=== PATIENT | female | born 1940 | race Caucasian/White ===

== ENCOUNTER 2024-12-02 20:09 | Emergency (ER) | payer OTHER ==
[~2024-12-02] VITALS: Ht 149.9 cm; Wt 73.9 kg
[2024-12-02 20:33] LABS: BASOPHILS # (AUTO) 0.04 K/uL (0.00-0.20); BASOPHILS % (AUTO) 0.5 % (0.0-5.0); EOSINOPHILS # (AUTO) 0.17 K/uL (0.00-0.70); EOSINOPHILS % (AUTO) 2.3 % (0.0-8.0); HEMATOCRIT 35.7 % (36-48); IMMATURE GRANULOCYTE ABSOLUTE 0.02 K/uL (0-1); LYMPHOCYTES # (AUTO) 2.5 K/uL (1.0-4.8); MEAN CORPUSCULAR HEMOGLOBIN 24.9 pg (27.0-33.0); MEAN CORPUSCULAR HGB CONC 31.1 g/dL (32.0-36.0); MONOCYTES # (AUTO) 0.7 K/uL (0.1-1.0); MONOCYTES % (AUTO) 9.1 % (3.0-13.0); NEUTROPHILS % (AUTO) 53.8 % (40.0-77.0); PLATELET COUNT (AUTO) 217 K/uL (130-400); RED BLOOD CELL COUNT(AUTO) 4.46 MIL/uL (4.00-5.50); RED CELL DISTRIBUTION WIDTH 16.2 % (11.0-15.5); WHITE BLOOD COUNT (AUTO) 7.5 K/uL (4.8-10.8)
[2024-12-02 20:34] LABS: APPEARANCE,URINE CLEAR (CLEAR); BILIRUBIN,URINE NEGATIVE (NEGATIVE); COLOR,URINE YELLOW (YELLOW); GLUCOSE, URINE (UA) NEGATIVE (NEGATIVE); KETONES,URINE NEGATIVE (NEGATIVE); LEUKOCYTE ESTERASE ,URINE NEGATIVE Leu/uL (NEGATIVE); NITRATE,URINE 1+ (NEGATIVE); OCCULT BLOOD,URINE NEGATIVE (NEGATIVE); PH,URINE 5.5 (5.0-8.0); PROTEIN,URINE 20 mg/dL (NEGATIVE); UROBILINOGEN,URINE 0.2 mg/dL (0.2-1.0)
[2024-12-02 20:39] LABS: BACTERIA,URINE MOD /HPF (None Seen); MUCUS,URINE FEW LPF (None Seen); SQUAMOUS EPITHELIAL CELL,UR FEW /HPF (0-2)
[2024-12-02 20:43] LABS: POTASSIUM 3.8 mmol/L (3.5-5.1)
--- NOTE | 2024-12-02 21:20 | HMCIMG ---
PORTABLE CHEST RADIOGRAPH INDICATION: Chest pain COMPARISON: None FINDINGS: Heart is enlarged. The pulmonary vascularity and michelle appear normal. No abnormal pulmonary parenchymal opacity or consolidation identified. No significant pleural effusion noted. No pneumothorax detected. Moderate hiatal hernia. IMPRESSION: Cardiomegaly without radiographic evidence for any acute cardiopulmonary process. Moderate hiatal hernia.
--- NOTE | 2024-12-02 22:06 | ERN ---
General Chief Complaint: Chest Pain Stated Complaint: C/O CP WITH HEADACHE ON AND OFF TODAY Time Seen by MD: 20:12 Time Seen by Midlevel: 20:12 Source: patient History of Present Illness Initial Comments 84-year-old female who presents to the emergency department due to chest pain that occurred approximately 1 hour prior to arrival. Patient states she was playing cards when the pain initiated abruptly. Denies any difficulty breathing or further associated symptoms. Patient reports she takes a statin due to a previous TIA but denies any significant past medical history. Allergies: Coded Allergies: codeine (Unverified Allergy, Unknown, 12/02/24) Past Medical History Past Medical History: No Pertinent History Past Surgical History: Other, Surgical History Other: KNEES SX ROS Dictation Constitutional: Negative for fever,chills, and weight loss Eyes: Negative for injury, pain,redness, and discharge ENT: Negative for injury,pain or swelling Cardiovascular: Positive positive for chest pain Negative for palpitations, and edema Respiratory: Negative for shortness of breath, cough, and wheezing, Abdomen/GI: Negative for abdominal pain, nausea, vomiting, diarrhea, and constipation Back: Negative for injury and pain : Negative for painful urination, bleeding or discharge MS/Extremity: Negative for injury and deformity Skin: Negative for rash, and discoloration Neuro: Negative for headache, weakness, numbness, tingling, and seizure Psych: Negative for suicide ideation, homicidal ideation, and hallucinations Physical Exam Physical Exam Dictation General: awake, alert, no acute distress Head/Face: Normocephalic, atraumatic Eyes: PERRL, EOMI, normal conjunctiva ENT: oral cavity clear, oral mucosa moist Neck: Supple, normal range of motion Cardiovascular: RRR, normal S1/S2 Respiratory: CTAB, no respiratory distress, no rales or wheezes Abdomen: Soft, non-tender, non-distended, no guarding or rebound. Skin: Warm, dry, normal turgor, no rash MS/Extremity: Pulses equal, no cyanosis, neurovascular intact, FROM Neuro: COAx4, GCS 15, strength 5/5, CN 2-12 intact, normal cerebellar exam, normal gait Psych: Normal behavior, mood, and affect normal Results Laboratory and Microbiology Lab and Micro Result Laboratory Tests Test 12/02/24 20:18 12/02/24 20:12/02/24 22:46 Urine Color YELLOW (YELLOW) Urine Appearance CLEAR (CLEAR) Urine pH 5.5 (5.0-8.0) Urine Specific [place] 1.029 (1.001-1.031) Urine Protein 20 mg/dL (NEGATIVE) H Urine Glucose (UA) NEGATIVE mg/dL (NEGATIVE) Urine Ketones NEGATIVE mg/dL (NEGATIVE) Urine Occult Blood NEGATIVE (NEGATIVE) Urine Nitrate 1+ (NEGATIVE) H Urine Bilirubin NEGATIVE mg/dL (NEGATIVE) Urine Urobilinogen 0.2 mg/dL (0.2-1.0) Urine Leukocyte Esterase NEGATIVE [place]/uL Urine RBC 2-5 /HPF (0-1) H Urine WBC 6-10 /HPF (0-1) H Urine Squamous Epithelial Cells FEW /HPF (0-2) Urine Bacteria MOD /HPF (None Seen) White Blood Count 7.5 K/uL (4.8-10.8) Red Blood Count 4.46 MIL/uL (4.00-5.50) Hemoglobin 11.1 g/dL (12.0-16.0) L Hematocrit 35.7 % (36-48) L Mean Corpuscular Volume 80.0 fL (79-99) Mean Corpuscular Hemoglobin 24.9 pg (27.0-33.0) L Mean Corpuscular Hemoglobin Concent 31.1 g/dL (32.0-36.0) L Red Cell Distribution Width 16.2 % (11.0-15.5) H Platelet Count 217 K/uL (130-400) Mean Platelet Volume 9.5 fL (7.5-10.5) Immature Granulocyte % (Auto) 0.3 % (0-1) Neutrophils (%) (Auto) 53.8 % (40.0-77.0) Lymphocytes (%) (Auto) 34.0 % (21.0-51.0) Monocytes (%) (Auto) 9.1 % (3.0-13.0) Eosinophils (%) (Auto) 2.3 % (0.0-8.0) Basophils (%) (Auto) 0.5 % (0.0-5.0) Neutrophils # (Auto) 4.0 K/uL (1.8-7.7) Lymphocytes # (Auto) 2.5 K/uL (1.0-4.8) Monocytes # (Auto) 0.7 K/uL (0.1-1.0) Eosinophils # (Auto) 0.17 K/uL (0.00-0.70) Basophils # (Auto) 0.04 K/uL (0.00-0.20) Absolute Immature Granulocyte (auto 0.02 K/uL (0-1) Nucleated Red Blood Cells 0.0 % (0.0-0.19) Red Blood Cell Morphology See comments Sodium Level 137 mmol/L (136-145) Potassium Level 3.8 mmol/L (3.5-5.1) Chloride Level 100 mmol/L (101-111) L Carbon Dioxide Level 33 mmol/L (21-32) H Blood Urea Nitrogen 21 mg/dL (7-18) H Creatinine 1.0 mg/dL (0.5-1.0) Glomerular Filtration Rate Calc 56 mL/min (>90) Random Glucose 92 mg/dL (70-105) Total Calcium 8.9 mg/dL (8.5-10.1) Troponin I High Sensitivity 5 ng/L (4-50) 5 ng/L (4-50) Labs Reviewed?: Yes EKG/XRAY/US/CT/MRI EKG Comment Date: 12/02/2024 Time: 2011 Rate: 73 EKG interpretation: Sinus rhythm, atrial premature complex, low voltage in precordial leads, no STEMI Reviewed by ED Attending X-RAY Comment REASON: Chest pain ORDERING PHYSICIAN: EDIN WADE PROCEDURE: CXR1VW - CHEST 1VW PORTABLE CHEST RADIOGRAPH INDICATION: Chest pain COMPARISON: None FINDINGS: Heart is enlarged. The pulmonary vascularity and michelle appear normal. No abnormal pulmonary parenchymal opacity or consolidation identified. No significant pleural effusion noted. No pneumothorax detected. Moderate hiatal hernia. IMPRESSION: Cardiomegaly without radiographic evidence for any acute cardiopulmonary process. Moderate hiatal hernia. DICTATED BY: ESTEVAN ASHTON MD DATE: 12/02/242116 MDM MDM: Differential diagnosis: OK, acute coronary syndrome, atypical chest pain, musculoskeletal pain Rationale: 84-year-old female who presents to the emergency department due to chest pain that occurred approximately 1 hour prior to arrival. Patient states she was playing cards when the pain initiated abruptly. Denies any difficulty breathing or further associated symptoms. Patient reports she takes a statin due to a previous TIA but denies any significant past medical history. Per physical examination patient is in no acute distress, nonlabored breathing chest, abdomen is soft nontender. Labs obtained indicate mild anemia with hemoglobin of 11.1, troponin within normal limits, UA negative for urinary tract infection. Heart score low risk. Chest x-ray obtained indicates cardiomegaly without acute pulmonary process, moderate hiatal hernia. Patient was educated on findings and diagnosis. Admission versus outpatient follow up discussed with the patient. Patient stated she was feeling well and would prefer to follow up outpatient with PCP. Based on patient's presentation, no risk factors, normal troponin, and heart score patient is stable for outpatient discharge. Advised to follow up with PCP. Return to the emergency department if any worsening symptoms. Patient verbalized understanding. Patient stable for discharge. There are no social concerns with this patient. I independently interpreted the test that were performed, results were reviewed by me and considered findings on radiology if ordered. Medical management and examination interpretation discussions were had by me with other qualified healthcare professionals as indicated for the patient's care. ED Course Orders Procedure Category Date Status Time Cbc With Differential LAB 12/02/24 Complete 20:12 Basic Metabolic Panel LAB 12/02/24 Complete 20:12 Urinalysis LAB 12/02/24 Complete W/Microscopic 20:12 Troponin I High LAB 12/02/24 Complete Sensitivity 20:12 12 Lead Ekg Tracing- EKG 12/02/24 Resulted Technical 20:12 Chest 1vw RAD 12/02/24 Resulted 20:12 Culture Urine SARA 12/02/24 Complete 20:36 Troponin I High LAB 12/02/24 Complete Sensitivity 21:44 Vital Signs Date Time Temp Pulse Resp B/P (MAP) Pulse Ox O2 Delivery O2 Flow Rate FiO2 12/02/24 23:55 97.5 76 18 162/73 99 Room Air* 0 21 12/02/24 20:11 97.5 77 20 178/82 99 Room Air [facility] [address] [address] IMAGING REPORT Signed PATIENT: DAMION GREY MR#: [id number] : 1940 SEX: F AGE: 84 LOCATION: [facility] ORDER 13 STATUS: REG ER REPORT#: [id number] SERVICE 11 REASON: Chest pain ORDERING PHYSICIAN: EDIN WADE PROCEDURE: CXR1VW - CHEST 1VW PORTABLE CHEST RADIOGRAPH INDICATION: Chest pain COMPARISON: None FINDINGS: Heart is enlarged. The pulmonary vascularity and michelle appear normal. No abnormal pulmonary parenchymal opacity or consolidation identified. No significant pleural effusion noted. No pneumothorax detected. Moderate hiatal hernia. IMPRESSION: Cardiomegaly without radiographic evidence for any acute cardiopulmonary process. Moderate hiatal hernia. DICTATED BY: ESTEVAN ASHTON MD DATE: 12/02/242116 ELECTRONICALLY SIGNED BY: ESTEVAN ASHTON MD DATE: 12/02/242122 HEART Score Response (Comments) Value History: Low suspicion (0) 0 EKG: Repolarization changes 1 Age: > 65yrs (+2) 2 Risk Factors: No known risk factors (0) 0 Initial Troponin: Normal limit (0) 0 HEART Score Risk: Low Risk for MACE (1-3) Total 3 DX & DISP Disposition: Discharge Departure Impression: Primary Impression: Non-cardiac chest pain Additional Impression: Hiatal hernia Condition: Stable Additional Instructions: Your blood work today is unremarkable. Your EKG does not show any evidence of a heart attack. Your two sets of cardiac enzymes are negative. Your chest x-ray shows a hiatal hernia but no other acute abnormalities. Please follow up with your primary care doctor for repeat evaluation in 2-3 days. Return to the ER if you develop any new or worsening symptoms Referrals: Macy WYLIE II, MD (PCP) Time of Disposition: 23:51 I have reviewed the case, and I agree with, Diagnosis and Plan I performed the substantive portion of the visit. I have reviewed and personally made and approve the management plan that is documented in the note by myself or the SARAH. I acknowledge for responsibility for the patient's management plan. EDIN WADE Dec 02, 2024 22:06 JOSH AREVALO Dec 02, 2024 23:51
[2024-12-02 23:55] VITALS: BP 162/73; PULSE 76; RESP 18; TEMP 97.5; O2SAT 99
--- NOTE | 2024-12-03 06:42 | EKG ---
[facility] Test Date: 2024-12-02 Test Time: 20:12:34 Pat Name: DAMION GREY Department: ED Room: Gender: F Picker: [phone] : 1940 Requested By: EDIN WADE Order Number: [id number] Reading MD: Ray De La Fuente Measurements Intervals [place] Rate: 73 P: 53 CA: 137 QRS: -6 QRSD: 94 T: 1 QT: 381 QTc: 417 Interpretive Statements Sinus rhythm Atrial premature complex Low voltage, precordial leads Borderline ST elevation, lateral leads No previous ECG available for comparison Electronically Signed On 12-03-2024 07:27:21 CDT by Ray De La Fuente Please click the below link to view image of tracing.
== END 2024-12-03 00:14 | disposition home or self-care (01) ==
LOC: EDH 20:09
DX: R07.89 Other chest pain (principal); K44.9 Diaphragmatic hernia without obstruction or gangrene; Z86.73 Personal history of transient ischemic attack (TIA), and cerebral infarction without residual deficits; Z88.5 Allergy status to narcotic agent
CPT/HCPCS: 36415; 71045; 80048; 81001; 84484; 85025; 87086; 87186; 93005; 99284